=== PATIENT | female | born 1940 | race Caucasian/White ===

== ENCOUNTER 2017-09-15 03:39 | Emergency (ER) | payer OTHER ==
[2017-09-15] MEDS ORDERED: MEPERIDINE-PF 25 MG/ML SYG ONE (04:17)
[2017-09-15] MEDS ORDERED: METHYLPREDNISOLONE SOD SUCC 125MG/2ML VIAL ONE (04:17)
== END 2017-09-15 07:19 | disposition home or self-care (01) ==
LOC: EDH 03:39
DX: G43.901 Migraine, unspecified, not intractable, with status migrainosus (principal); E11.9 Type 2 diabetes mellitus without complications; E78.5 Hyperlipidemia, unspecified; I10 Essential (primary) hypertension
CPT/HCPCS: 96372 ×2; 99284; J2175; J2930

== ENCOUNTER → 2018-02-14 | Outpatient (CLI) | payer OTHER ==
[~2018-02-14] MED LIST: ISOVUE-370 50ML VIAL IV ONE
== END | disposition home or self-care (01) ==
LOC: RAH 12:34
PROVIDERS: ATTEND Family Medicine
DX: R41.82 Altered mental status, unspecified (principal); R47.81 Slurred speech
CPT/HCPCS: 70470; Q9967

== ENCOUNTER → 2018-09-07 | Outpatient (CLI) | payer OTHER | END | disposition home or self-care (01) | LOC: RAH 11:17 | PROVIDERS: ATTEND Family Medicine | DX: Z12.31 Encounter for screening mammogram for malignant neoplasm of breast (principal) | CPT/HCPCS: 77067 ==

== ENCOUNTER 2018-10-12 21:24 | Emergency (ER) | payer OTHER ==
[2018-10-12 22:08] LABS: BASOPHILS % (AUTO) 0.6 % (0.0-5.0); EOSINOPHILS % (AUTO) 0.2 % (0.0-8.0); HEMATOCRIT 38.1 % (36-48); LYMPHOCYTES % (AUTO) 9.4 % (21.0-51.0); MEAN CORPUSCULAR HEMOGLOBIN 31.4 pg (27.0-33.0); MEAN CORPUSCULAR HGB CONC 32.3 g/dL (32.0-36.0); MEAN CORPUSCULAR VOLUME 97.3 fL (79-99); MONOCYTES % (AUTO) 4.9 % (3.0-13.0); NEUTROPHILS % (AUTO) 84.9 % (40.0-77.0); PLATELET COUNT (AUTO) 198 K/uL (130-400); RED BLOOD CELL COUNT(AUTO) 3.92 MIL/uL (4.00-5.50); RED CELL DISTRIBUTION WIDTH 17.3 % (11.0-15.5); WHITE BLOOD COUNT (AUTO) 11.6 K/uL (4.8-10.8)
[2018-10-12 22:12] LABS: INR 1.04 (0.85-1.15); PARTIAL THROMBOPLASTIN TIME 24.2 SEC (26.3-35.5); PROTHROMBIN TIME 10.9 SEC (9.6-11.6)
[2018-10-12 22:16] LABS: POTASSIUM 3.6 mmol/L (3.5-5.1)
[2018-10-12 22:27] LABS: ALBUMIN 3.5 g/dL (3.5-5.0); BILIRUBIN,TOTAL 0.4 mg/dL (0.2-1.0); TOTAL PROTEIN, SERUM 6.2 g/dL (6.0-8.3)
[2018-10-12] MEDS ORDERED: SODIUM CHLORIDE 0.9% 1000ML 1,000 ML IV ONE (22:35)
[2018-10-12 23:52] LABS: BILIRUBIN,URINE Small (NEGATIVE); GLUCOSE, URINE (UA) Negative (NEGATIVE); KETONES,URINE 15 mg/dL (NEGATIVE); LEUKOCYTE ESTERASE ,URINE Moderate (NEGATIVE); NITRATE,URINE Positive (NEGATIVE); OCCULT BLOOD,URINE Large (NEGATIVE); PROTEIN,URINE POS 2+ (NEGATIVE)
[2018-10-12 23:56] LABS: APPEARANCE,URINE TURBID (CLEAR)
[2018-10-12 23:57] LABS: COLOR,URINE AMBER (YELLOW)
[2018-10-13 00:03] LABS: BACTERIA,URINE Moderate /HPF (None Seen); RBC,URINE >100 /HPF (0-1)
[2018-10-13] MEDS ORDERED: CEFTRIAXONE SODIUM 1 GM ONE (00:24)
[2018-10-13] MEDS ORDERED: SODIUM CHLORIDE 0.9% 50 ML IV ONE (00:24)
== END 2018-10-13 02:43 | disposition home or self-care (01) ==
LOC: EDH 21:24
DX: N39.0 Urinary tract infection, site not specified (principal); K59.00 Constipation, unspecified; E11.9 Type 2 diabetes mellitus without complications; E78.5 Hyperlipidemia, unspecified; I10 Essential (primary) hypertension; E07.9 Disorder of thyroid, unspecified
CPT/HCPCS: 36415; 74176; 76856; 80053; 81001; 82550; 84484; 85025; 85610; 85730; 86850; 86900; 86901; 87077; 87088; 87186; 93005; 96374; 99284; J0696; J7030

== ENCOUNTER 2019-12-02 13:23 | Emergency (ER) | payer OTHER ==
[~2019-12-02 13:23] MED LIST changes: +ATOR20TA65 PO; +DIPH50CA44 PO; +HYDR12.54 PO; +HYDR500C2 PO; -ISOVUE-370 50ML VIAL IV ONE; +LEVO100T12 PO; +METF-527 PO; +METO-391 PO; +NAPR-1023 PO; +ONDA4TAB10 PO; +SERT100T12 PO; +TRAZ-187 PO
[2019-12-02 13:38] LABS: BASOPHILS % (AUTO) 1.7 % (0.0-5.0); HEMATOCRIT 42.8 % (36-48); LYMPHOCYTES % (AUTO) 17.2 % (21.0-51.0); MEAN CORPUSCULAR HEMOGLOBIN 30.4 pg (27.0-33.0); MEAN CORPUSCULAR HGB CONC 32.2 g/dL (32.0-36.0); MEAN CORPUSCULAR VOLUME 94.3 fL (79-99); MONOCYTES % (AUTO) 5.7 % (3.0-13.0); NEUTROPHILS % (AUTO) 72.9 % (40.0-77.0); PLATELET COUNT (AUTO) 175 K/uL (130-400); RED BLOOD CELL COUNT(AUTO) 4.54 MIL/uL (4.00-5.50); RED CELL DISTRIBUTION WIDTH 15.2 % (11.0-15.5)
[2019-12-02 13:45] LABS: CREATININE 1.2 mg/dL (0.5-1.5)
[2019-12-02 13:50] LABS: ALBUMIN 3.6 g/dL (3.5-5.0); BILIRUBIN,TOTAL 0.3 mg/dL (0.2-1.0); TOTAL PROTEIN, SERUM 7.1 g/dL (6.0-8.3)
[2019-12-02] MEDS ORDERED: ASPIRIN 325 MG TABLET ONE (14:18)
== END 2019-12-02 16:57 | disposition home or self-care (01) ==
LOC: EDH 13:23
DX: R07.89 Other chest pain (principal); E11.9 Type 2 diabetes mellitus without complications; E78.5 Hyperlipidemia, unspecified; I10 Essential (primary) hypertension
CPT/HCPCS: 36415; 71046; 80053; 82550; 84484; 85025; 93005

== ENCOUNTER 2019-12-14 09:56 | Inpatient (IN) | payer OTHER ==
[~2019-12-14] VITALS: Ht 157.5 cm; Wt 55.4 kg
[2019-12-14 10:31] LABS: BASOPHILS % (AUTO) 0.6 % (0.0-5.0); EOSINOPHILS % (AUTO) 0.1 % (0.0-8.0); HEMATOCRIT 47.9 % (36-48); LYMPHOCYTES % (AUTO) 5.5 % (21.0-51.0); MEAN CORPUSCULAR HGB CONC 32.8 g/dL (32.0-36.0); MEAN CORPUSCULAR VOLUME 91.4 fL (79-99); MONOCYTES % (AUTO) 4.4 % (3.0-13.0); NEUTROPHILS % (AUTO) 88.8 % (40.0-77.0); PLATELET COUNT (AUTO) 243 K/uL (130-400); RED BLOOD CELL COUNT(AUTO) 5.24 MIL/uL (4.00-5.50); RED CELL DISTRIBUTION WIDTH 15.8 % (11.0-15.5); WHITE BLOOD COUNT (AUTO) 12.7 K/uL (4.8-10.8)
[2019-12-14 10:46] LABS: APPEARANCE,URINE Clear (CLEAR); BILIRUBIN,URINE Negative (NEGATIVE); COLOR,URINE Yellow (YELLOW); GLUCOSE, URINE (UA) 250 mg/dL (NEGATIVE); KETONES,URINE 15 mg/dL (NEGATIVE); LEUKOCYTE ESTERASE ,URINE Negative (NEGATIVE); NITRATE,URINE Negative (NEGATIVE); OCCULT BLOOD,URINE Negative (NEGATIVE); PH,URINE 6.5 (5.0-8.0); PROTEIN,URINE POS 2+ mg/dL (NEGATIVE)
[2019-12-14] MEDS ORDERED: CEFTRIAXONE SODIUM 1 GM ONE (10:52)
[2019-12-14 10:56] LABS: ALBUMIN 4.3 g/dL (3.5-5.0); BILIRUBIN,TOTAL 0.5 mg/dL (0.2-1.0); CREATININE 1.2 mg/dL (0.5-1.5); TOTAL PROTEIN, SERUM 8.2 g/dL (6.0-8.3)
[2019-12-14 11:08] LABS: RBC,URINE 0-1 /HPF (0-1)
[2019-12-14 11:09] LABS: BACTERIA,URINE Rare /HPF (None Seen); WBC,URINE 0-1 /HPF (0-1)
[2019-12-14 11:40] LABS: POTASSIUM 3.7 mmol/L (3.5-5.1)
[2019-12-14 12:13] LABS: AMPHET/METH SCREEN,URINE NEGATIVE (NEGATIVE); BARBITURATE SCREEN, URINE POSITIVE (NEGATIVE); BENZODIAZEPINES SCREEN,URINE NEGATIVE (NEGATIVE); CANNABINOID SCREEN,URINE NEGATIVE (NEGATIVE); COCAINE SCREEN,URINE NEGATIVE (NEGATIVE); OPIATE SCREEN,URINE NEGATIVE (NEGATIVE); PHENCYCLIDINE SCREEN,URINE NEGATIVE (NEGATIVE)
[2019-12-14] MEDS ORDERED: LORAZEPAM 2 MG/ML 1 ML VIAL ONE (12:35)
[2019-12-14] MEDS ORDERED: SODIUM CHLORIDE 0.9% 1000ML 1,000 ML IV SCH (13:15)
--- NOTE | 2019-12-14 14:12 | NUR ---
ARRIVAL TO FLOOR ROOM 225 PT IS AWAKE AND ALERT TO NAME. I ASKED HER AGE, SHE STATES "YOU WOULDN'T BELIEVE ME" AND STARTS LAUGHING. I ASK HER OTHER QUESTIONS AND SHE CONTINUES TO LAUGH. BREATHING PATTERN IS EVEN AND UNLABORED. NO VISIBLE SIGNS OF DISTRESS NOTED. LAYING UPRIGHT IN BED. SIDE RAILS UP X4 BLINDS OPEN. MOST OF ADMISSION QUESTIONAIRE DONE BY PREVIOUS HISTORY AND ADMISSION INFO
[2019-12-14 14:23] VITALS: BP 148/91
[2019-12-14] MEDS ORDERED: LEVOFLOXACIN 500 MG TABLET PO SCH (15:00)
[2019-12-14] MEDS ORDERED: BACL10TA PO (15:17)
[2019-12-14] MEDS ORDERED: MIRT15TA6 PO (15:17)
[2019-12-14] MEDS ORDERED: HYDR-3421 PO (15:17)
[2019-12-14] MEDS ORDERED: METOPROLOL ER PO (15:17)
[2019-12-14] MEDS ORDERED: BUTA-256 PO (15:17)
[2019-12-14] MEDS ORDERED: ZONI100C19 PO (15:17)
[2019-12-14] MEDS ORDERED: ISOS30TA6 PO (15:17)
[2019-12-14 16:13] VITALS: BP 153/95
--- NOTE | 2019-12-14 18:00 | NUR ---
STATUS NO COMPLAINTS THROUGHOUT THE AFTERNOON, CONTINUES WITH NS INFUSION ORDERED. SITTING UP IN BED. SIDE RAILS UP X4. CALL LIGHT WITHIN REACH.
[2019-12-14 19:33] VITALS: BP 187/110
[2019-12-14] MEDS ORDERED: CLONIDINE HCL 0.2 MG TABLET PO PRN (19:45)
[2019-12-14] MEDS: LISINOPRIL 40 MG TABLET PO SCH ×2 (20:00→20:31)
[2019-12-14 20:30] VITALS: BP 160/103
[2019-12-14] MEDS: HYDROXYZINE HCL 25 MG TABLET PO PRN (20:30)
[2019-12-14] MEDS: ATORVASTATIN CALCIUM 20 MG TABLET PO SCH ×2 (20:30→21:00)
[2019-12-14] MEDS: QUETIAPINE FUMARATE 25 MG TAB PO SCH ×2 (20:30→21:00)
[2019-12-14] MEDS: NITROGLYCERIN 1GM/1 INCH PACKET TD SCH ×2 (20:36→21:00)
[2019-12-14] MEDS ORDERED: HALOPERIDOL LACTATE 5 MG/ML VIAL ONE (23:41)
[2019-12-14] MEDS ORDERED: HALOPERIDOL LACTATE 5 MG/ML VIAL IM PRN (23:45)
[2019-12-14] MEDS: HALOPERIDOL LACTATE 5 MG/ML VIAL IM SCH (23:45)
[2019-12-14] MEDS ORDERED: LORAZEPAM 2 MG/ML 1 ML VIAL IVP PRN (23:45)
--- NOTE | 2019-12-15 01:46 | NUR ---
2300: HOURLY ROUNDS PERFORMED BY PRIMARY NURSE, GI SANTOS RN. PATIENT REMOVED IV. REFUSING IV PLACEMENT. PATIENT ATTEMPTING TO GET OUT OF BAD. HITTING NURSE AND PCTANNE. 2305: SITTER ORDER PLACED 2310: DRY CELL SEALER, BETSY, NOTIFIED OF SITTER REQUEST. DRY CELL SEALER STATED NO SITTERS AVAILABLE AT THIS TIME. 2315: PATIENT OUT OF BED AND PACING IN ROOM AND HALLWAY. PATIENT ESCORTED TO ROOM, REFUSING TO RETURN TO BED. 2320: ADAM AND MD BRUSH PAGED BY LIBRARY MANAGER. 2330: MD BRUSH RETURNED PAGE. NOTIFIED OF PATIENT CONDITION BY GI EMANUEL. ORDERS FOR 2MG HALDOL IM Q4 PRN FOR AGITATION AND ATIVAN 1MG IV Q4 PRN FOR AGITATION. TORB. ORDERS PLACED IN EMR. 2345: SECURITY AT BEDSIDE. HALDOL ADMINISTERED IM BY GI EMANUEL. PATIENT RETURNED TO BED WITH ASSISTANCE BY RN, PCT AND SECURITY. 0000: PATIENT REFUSING VITAL SIGNS CHECKS. 0030: PIV INSERTION ATTEMPTED. PATIENT REFUSED. PATIENT ATTEMPTING TO HIT AND KICK NURSING STAFF.
[2019-12-15] MEDS: NITROGLYCERIN 1GM/1 INCH PACKET TD SCH ×3 (04:39→20:10)
[2019-12-15] MEDS ORDERED: LEVOFLOXACIN 500 MG/D5W 100 ML 100 ML IV SCH (05:00)
--- NOTE | 2019-12-15 05:46 | NUR ---
0500: PATIENT AGITATED, TRYING TO GET OUT OF BED. NURSING STAFF AT BEDSIDE. REFUSING LAB DRAWS. PRIMARY NURSE, GI EMANUEL, COORDINATED LAB RESCHEDULING TIME WITH CAD ADMINISTRATOR.
[2019-12-15] MEDS: LEVOTHYROXINE 100 MCG TABLET PO SCH (06:20)
--- NOTE | 2019-12-15 07:15 | NUR ---
ASSESSMENT PT IS AWAKE AND ALERT, CONFUSED AND HOSTILE, ANSWERS TO HER NAME. CONSTANTLY SAYS "NO" TO ALL QUESTIONS WHEN ASKED. ATTEMPTS TO REMOVE BLINDS FROM WINDOW, REMOVING PAPERTOWELS FROM DISPENSER. NOTED STEADY GAIT. WHEN ASKED IF SHE WILL EAT BREAKFAST OR TAKE HER MEDS, SHE SAYS NO. CONTINUING TO MONITOR. REFUSING VITALS SIGNS CHECK AT THIS TIME.
[2019-12-15 07:32] VITALS: BP 126/94
--- NOTE | 2019-12-15 07:45 | NUR ---
VS CHECKED 1:1 SITTER AT BEDSIDE. MITTENS PLACED ON PATIENT. PATIENT ASSISTED TO CHAIR. 1:1 REMAINS AT BEDSIDE.
--- NOTE | 2019-12-15 08:30 | NUR ---
AM MEDS GIVEN CRUSHED WITH OATMEAL, TOLERATED OATMEAL WITH 1:1 SITTER ASSISTANCE
[2019-12-15] MEDS: HYDROXYUREA 500 MG CAP PO SCH (08:32)
[2019-12-15] MEDS: METOPROLOL SUCCINATE 50 MG TAB.SR.24H PO SCH (08:32)
[2019-12-15] MEDS: HYDROCHLOROTHIAZIDE 25 MG TABLET PO SCH (08:32)
[2019-12-15] MEDS: ISOSORBIDE MONO 30MG TAB SR PO SCH (08:33)
[2019-12-15] MEDS: HYDROXYZINE HCL 25 MG TABLET PO PRN (08:33)
[2019-12-15] MEDS: ZONISAMIDE 100 MG CAP PO SCH (08:33)
[2019-12-15] MEDS: PANTOPRAZOLE SODIUM 40 MG TABLET.DR PO SCH (08:34)
[2019-12-15] MEDS: LISINOPRIL 40 MG TABLET PO SCH (08:34)
--- NOTE | 2019-12-15 09:20 | NUR ---
REFUSED IV START
[2019-12-15 09:46] LABS: BASOPHILS % (AUTO) 0.6 % (0.0-5.0); EOSINOPHILS % (AUTO) 0.1 % (0.0-8.0); LYMPHOCYTES % (AUTO) 4.5 % (21.0-51.0); MEAN CORPUSCULAR HEMOGLOBIN 29.9 pg (27.0-33.0); MEAN CORPUSCULAR HGB CONC 32.5 g/dL (32.0-36.0); MEAN CORPUSCULAR VOLUME 91.9 fL (79-99); MONOCYTES % (AUTO) 5.8 % (3.0-13.0); NEUTROPHILS % (AUTO) 88.3 % (40.0-77.0); PLATELET COUNT (AUTO) 243 K/uL (130-400); RED BLOOD CELL COUNT(AUTO) 4.79 MIL/uL (4.00-5.50); RED CELL DISTRIBUTION WIDTH 15.8 % (11.0-15.5); WHITE BLOOD COUNT (AUTO) 11.6 K/uL (4.8-10.8)
[2019-12-15 10:02] LABS: ALBUMIN 3.9 g/dL (3.5-5.0); BILIRUBIN,TOTAL 0.4 mg/dL (0.2-1.0); CREATININE 1.4 mg/dL (0.5-1.5); TOTAL PROTEIN, SERUM 7.3 g/dL (6.0-8.3)
[2019-12-15] MEDS ORDERED: POTASSIUM CHLORIDE 10% ELIXIR 20 MEQ/15 ML UDCUP PO SCH (10:45)
[2019-12-15 11:46] VITALS: BP 119/56
--- NOTE | 2019-12-15 13:00 | NUR ---
DR BRUSH ROUNDED SAW PATIENT, ORDERS RECEIVED AND CARRIED OUT
[2019-12-15] MEDS ORDERED: QUETIAPINE FUMARATE 25 MG TAB PO SCH (13:31)
[2019-12-15] MEDS ORDERED: LEVOFLOXACIN 500 MG TABLET PO SCH (13:32)
--- NOTE | 2019-12-15 13:50 | NUR ---
STATUS PATIENT ASSISTED TO BED, PATIENT IS ASLEEP. BREATHING PATTERN IS EVEN AND UNLABORED. SIDE RAILS UP X4, BLINDS OPEN, SITTER AT BEDSIDE.
--- NOTE | 2019-12-15 14:25 | NUR ---
cm note Pt currently with confusion. call made to pt's spouse Chalo Alanis, states pt normally independent with ambulation, does have a provider for adls. 2-3hrs daily, also, has a walker and a w/c but does not use, spouse transports to md. states normally pt is alert to make her own decisions, but confused currently. spouse states dc plan is back to home at dc when pt stable, states pt has been at [facility] in the past , but prefers she go home at dc. Addendum: 12/15/19 at 1434 by ITALIA ACOSTA Amended: Links added.
--- NOTE | 2019-12-15 16:55 | NUR ---
STATUS PATIENT REMAINS ASLEEP. BREATHING PATTERN IS EVEN AND UNLABORED. NO VISIBLE SIGNS OF DISTRESS NOTED. SIDE RAILS UP X4, BLINDS OPEN. SITTER AT BEDSIDE.
[2019-12-15 20:00] VITALS: BP 143/57
[2019-12-15] MEDS: ATORVASTATIN CALCIUM 20 MG TABLET PO SCH (20:10)
[2019-12-15] MEDS: QUETIAPINE FUMARATE 25 MG TAB PO SCH (20:10)
[2019-12-15] MEDS: HALOPERIDOL LACTATE 5 MG/ML VIAL IM SCH (22:48)
[2019-12-15 23:50] VITALS: BP 151/95
[2019-12-16 03:33] VITALS: BP 161/106
[2019-12-16] MEDS: NITROGLYCERIN 1GM/1 INCH PACKET TD SCH ×3 (04:55→21:00)
[2019-12-16] MEDS: LEVOTHYROXINE 100 MCG TABLET PO SCH (06:06)
[2019-12-16 06:07] LABS: BASOPHILS % (AUTO) 1.1 % (0.0-5.0); EOSINOPHILS % (AUTO) 1.1 % (0.0-8.0); HEMATOCRIT 43.8 % (36-48); LYMPHOCYTES % (AUTO) 12.5 % (21.0-51.0); MEAN CORPUSCULAR HEMOGLOBIN 30.4 pg (27.0-33.0); MEAN CORPUSCULAR HGB CONC 33.1 g/dL (32.0-36.0); MEAN CORPUSCULAR VOLUME 91.8 fL (79-99); MONOCYTES % (AUTO) 7.3 % (3.0-13.0); NEUTROPHILS % (AUTO) 77.3 % (40.0-77.0); PLATELET COUNT (AUTO) 188 K/uL (130-400); RED BLOOD CELL COUNT(AUTO) 4.77 MIL/uL (4.00-5.50); RED CELL DISTRIBUTION WIDTH 15.9 % (11.0-15.5)
[2019-12-16 06:26] LABS: ALBUMIN 3.7 g/dL (3.5-5.0); BILIRUBIN,TOTAL 0.5 mg/dL (0.2-1.0); CREATININE 1.1 mg/dL (0.5-1.5); TOTAL PROTEIN, SERUM 6.9 g/dL (6.0-8.3)
[2019-12-16 08:00] VITALS: BP 171/91
--- NOTE | 2019-12-16 08:30 | NUR ---
AM ASSESSMENT PT WATCHING TV. ORIENTED TO SELF ONLY. CONFUSED PHRASES. NO SOB. NO DISTRESS NOTED. DENIES CHEST PAIN OR DISCOMFORT. NO TELEMETRY MONITORING @ THIS TIME. DENIES N/V AND//OR DIARRHEA. POOR APPETITE. OOB TO CHAIR W/ASSISTANCE. NO IV ACCESS, MD AWARE. 1:1 SITTER. CALL PRIYANK W/IN REACH.
--- NOTE | 2019-12-16 09:00 | NUR ---
AM MEDICATIONS 0900 PT REFUSING TO TAKEN MORNINGS MEDS. 0930 PT HAS AGREED TO TAKE HOME MEDICATIONS. PILLS CRUSHED IN APPLE SAUCE.
[2019-12-16] MEDS: LISINOPRIL 40 MG TABLET PO SCH (09:04)
[2019-12-16] MEDS: ISOSORBIDE MONO 30MG TAB SR PO SCH (09:04)
[2019-12-16] MEDS: HYDROXYUREA 500 MG CAP PO SCH (09:04)
[2019-12-16] MEDS: METOPROLOL SUCCINATE 50 MG TAB.SR.24H PO SCH (09:04)
[2019-12-16] MEDS: PANTOPRAZOLE SODIUM 40 MG TABLET.DR PO SCH (09:04)
[2019-12-16] MEDS: LEVOFLOXACIN 500 MG TABLET PO SCH (09:04)
[2019-12-16] MEDS: HYDROCHLOROTHIAZIDE 25 MG TABLET PO SCH (09:05)
[2019-12-16] MEDS: ZONISAMIDE 100 MG CAP PO SCH (09:05)
--- NOTE | 2019-12-16 09:55 | NUR ---
NEUROLOGY CONSULT DR ROMO NOTIFIED OF CONSULT.
--- NOTE | 2019-12-16 10:10 | NUR ---
NEUROLOGY CONSULT DR ROMO IN TO SEE PT. CONSULT INFO RELAYED, UPDATED ON PT'S STATUS. PLAN OF CARE REVIEWED.
--- NOTE | 2019-12-16 10:24 | NUR ---
STATUS CALL RECEIVED FROM PT'S GRANDDAUGHTER. FAMILY MEMBER SPOKE W/DR ROMO VIA TELEPHONE REGARDING PT'S CURRENT & HOME MEDICATIONS.
[2019-12-16 11:15] VITALS: BP 118/74
[2019-12-16] MEDS ORDERED: POTASSIUM CHLORIDE 10% ELIXIR 20 MEQ/15 ML UDCUP PO PRN (11:15)
[2019-12-16] MEDS ORDERED: LEVOFLOXACIN 500 MG TABLET PO SCH (13:00)
[2019-12-16] MEDS: POTASSIUM CHLORIDE 20 MEQ ERTAB PO PRN ×3 (14:54→21:27)
[2019-12-16 16:00] VITALS: BP 113/71
[2019-12-16 19:32] VITALS: BP 140/78
[2019-12-16] MEDS: ATORVASTATIN CALCIUM 20 MG TABLET PO SCH (20:30)
[2019-12-16] MEDS: QUETIAPINE FUMARATE 25 MG TAB PO SCH (20:30)
[2019-12-16] MEDS: TEMAZEPAM 15 MG CAPSULE PO SCH ×2 (20:30→21:00)
[2019-12-16] MEDS: HALOPERIDOL LACTATE 5 MG/ML VIAL IM SCH (21:22)
[2019-12-16 23:00] VITALS: BP 131/72
[2019-12-17 03:00] VITALS: BP 111/70
[2019-12-17] MEDS: LEVOTHYROXINE 100 MCG TABLET PO SCH (07:41)
[2019-12-17] MEDS: NITROGLYCERIN 1GM/1 INCH PACKET TD SCH ×3 (07:50→20:01)
[2019-12-17 08:00] VITALS: BP 112/67
--- NOTE | 2019-12-17 08:00 | NUR ---
PT AWAKE AND OUT OF BED REVIEW FALL RISK PT IS STILL KIND OF WEAK, ASSIT BACK TO BED, AND HAS STAFF MEMBER AT THE BEDSIDE FOR MONITOR CARE. PT STATED THAT SHE IS AWARE OF HER CARE AND HER SURROUNDING, CALL LIGHT IN REACH.
[2019-12-17] MEDS: METOPROLOL SUCCINATE 50 MG TAB.SR.24H PO SCH (08:23)
[2019-12-17] MEDS: PANTOPRAZOLE SODIUM 40 MG TABLET.DR PO SCH (08:24)
[2019-12-17] MEDS: LISINOPRIL 40 MG TABLET PO SCH (08:24)
[2019-12-17] MEDS: LEVOFLOXACIN 500 MG TABLET PO SCH (08:25)
[2019-12-17] MEDS: ISOSORBIDE MONO 30MG TAB SR PO SCH (08:25)
[2019-12-17] MEDS: HYDROCHLOROTHIAZIDE 25 MG TABLET PO SCH (08:26)
[2019-12-17] MEDS: ZONISAMIDE 100 MG CAP PO SCH (09:00)
[2019-12-17] MEDS: HYDROXYUREA 500 MG CAP PO SCH (09:00)
--- NOTE | 2019-12-17 09:10 | NUR ---
DR. ROMO . HERE AND SPOKE WITH PT REGARDING STUDIES . PT STATED , THAT SHE HAD SOME STUDIES DONE AT [facility] . . STATED TO REQUEST STUDIES FROM THERE .
--- NOTE | 2019-12-17 11:02 | NUR ---
1015 received telephone consent from , Chalo Alanis([phone]) because patient is confused at this time.I faxed IM Letter to [phone] and placed in chart under consent tab.
[2019-12-17 11:41] VITALS: BP 143/90
[2019-12-17 14:47] LABS: CREATININE 1.4 mg/dL (0.5-1.5); POTASSIUM 4.4 mmol/L (3.5-5.1)
[2019-12-17 15:50] VITALS: BP 110/65
[2019-12-17] MEDS ORDERED: PHARMACY COMMUNICATION MISC SCH (19:15)
[2019-12-17 19:45] VITALS: BP 133/77
[2019-12-17] MEDS: TEMAZEPAM 15 MG CAPSULE PO SCH (20:00)
[2019-12-17] MEDS: QUETIAPINE FUMARATE 25 MG TAB PO SCH (20:00)
[2019-12-17] MEDS: ATORVASTATIN CALCIUM 20 MG TABLET PO SCH (20:00)
[2019-12-17] MEDS: ACETAMINOPHEN 325 MG TAB PO PRN (20:02)
--- NOTE | 2019-12-17 20:05 | NUR ---
MEDS SHIFT ASSESSMENT DONE, PLEASE REFER TO CHART. PT CLAIMS OF HEADACHE. EXPLAINED THAT MD WILL BE CALLED TO VERIFY ORDER SINCE EXEDRIN IS NOT AVAILABLE IN THE PHARMACY. DUE MEDS GIVEN, TYLENOL PO GIVEN FOR HEADACHE AT THIS TIME. KEPT RESTED AND COMFORTABLE IN BED. WILL RE-ASSESS PT. SITTER KEEPING CLOSE WATCH AT THIS TIME. Addendum: 12/17/19 at 2148 by BROOKE PEDRAZA RN RN Amended: Links added.
--- NOTE | 2019-12-17 20:53 | NUR ---
TRIED TO CALL [facility] VIA OFFICE PHONE BUT NO ANSWERING SERVICE. CALLED ON HIS CELLPHONE AND REFEREED NEGRA N/A IN THE RX. NEW ORDER RECEIVED, PLEASE REFER TO CPOE.
[2019-12-17] MEDS ORDERED: BUTALB/ACETAMINOPHEN/CAFFEINE 1 EACH TABLET PO PRN (21:00)
[2019-12-17 23:11] VITALS: BP 116/65
--- NOTE | 2019-12-18 01:26 | NUR ---
H/A PT AWAKENS AND COMPLAINTS OF HEADACHE. MEDICATED WITH BUTAL/TYLENOL/CAFFEINE TAB PO, TOLERATED WELL. ENCOURAGED TO REST AND SLEEP. ENCOURAGED TO GO BACK TO SLEEP. WILL RE-ASSESS PT.
[2019-12-18 03:13] VITALS: BP 109/64
[2019-12-18] MEDS: NITROGLYCERIN 1GM/1 INCH PACKET TD SCH (05:17)
[2019-12-18] MEDS: LEVOTHYROXINE 100 MCG TABLET PO SCH (05:17)
--- NOTE | 2019-12-18 05:17 | NUR ---
MEDS AWAKENED PT FOR DUE MEDS, TOLERATED WELL. NO NOTED CONFUSION AT THIS TIME. ENCOURAGED TO GO BACK TO SLEEP. FOR MORE CARE.
[2019-12-18] MEDS ORDERED: NITROGLYCERIN 1GM/1 INCH PACKET TD SCH (06:30)
[2019-12-18 07:09] VITALS: BP 108/72
[2019-12-18] MEDS ORDERED: METFORMIN HCL 500 MG TABLET PO SCH (08:00)
[2019-12-18] MEDS: ZONISAMIDE 100 MG CAP PO SCH (10:08)
[2019-12-18] MEDS: HYDROXYUREA 500 MG CAP PO SCH (10:09)
[2019-12-18] MEDS: PANTOPRAZOLE SODIUM 40 MG TABLET.DR PO SCH ×2 (10:09→10:22)
[2019-12-18] MEDS: METOPROLOL SUCCINATE 50 MG TAB.SR.24H PO SCH ×2 (10:10→10:14)
[2019-12-18] MEDS: ISOSORBIDE MONO 30MG TAB SR PO SCH (10:11)
[2019-12-18] MEDS: LEVOFLOXACIN 500 MG TABLET PO SCH (10:21)
[2019-12-18] MEDS: HYDROCHLOROTHIAZIDE 25 MG TABLET PO SCH (10:34)
[2019-12-18] MEDS: LISINOPRIL 40 MG TABLET PO SCH (10:35)
[2019-12-18 10:47] VITALS: BP 125/76
[2019-12-18] MEDS: ACETAMINOPHEN 325 MG TAB PO PRN (15:03)
--- NOTE | 2019-12-18 15:30 | NUR ---
DISCHARGED NOW USING TEACH BACK. INSTRUCTIONS GIVEN AND VERBALIZES UNDERSTANDING. WENT OVER ALL MEDS AGAIN AND THE ONES SHE STATES NO LONGER TAKES. WILL FOLLOW UP WITH APPT. AND TAKE MEDS INST. WHEELED DOWN TO PRIVATE CAR. ALL PERSONAL BELONGINGS WITH HER.
--- NOTE | 2019-12-18 15:45 | NUR ---
DISCHARGED NOW USING TEACH BACK, INST. GIVEN WITH RX AND APPT.TO FOLLOW UP PCP, VERY CONVERSIVE.NO C/O OF ANY KIND . UNDERSTANDS ALL HER MEDS, DISCUSSED NEW ONES. HOME MEDS IN PLASTIC BAG AND ACKNOWLEDGE THEM SHE WAS THINKING THEY HAD BEEN LOST OR MISPLACED WHEELED DOWN STAIRS WHERE SPOUSE WAS WAITING
--- NOTE | 2019-12-18 16:25 | NUR ---
DR. LERNER IN TO SEE PT. OK TO DC FROM HIS STANDPOINT, LEFT X.
== END 2019-12-18 15:55 | disposition home or self-care (01) | DRG 72 ==
LOC: EDH 09:56 → OBSVTOIN 12:51 → EDHIP 12:51 → 2DH 14:05 → 3CH 12-16 23:23
PROVIDERS: ADMIT Family Medicine; ATTEND Family Medicine
DX: G93.40 Encephalopathy, unspecified (principal); F03.90 Unspecified dementia, unspecified severity, without behavioral disturbance, psychotic disturbance, mood disturbance, and anxiety; E11.9 Type 2 diabetes mellitus without complications; I10 Essential (primary) hypertension; E78.5 Hyperlipidemia, unspecified; F41.1 Generalized anxiety disorder; Z90.710 Acquired absence of both cervix and uterus; E03.9 Hypothyroidism, unspecified; Z91.14 Patient's other noncompliance with medication regimen; R19.7 Diarrhea, unspecified; Z20.828 Contact with and (suspected) exposure to other viral communicable diseases; R41.0 Disorientation, unspecified
CPT/HCPCS: 36415; 70450; 71045; 74176; 80048; 80053; 80305; 81001; 82140; 82270; 82550; 82948; 83605; 83630; 84484; 85025; 87040; 87046; 87088; 87324; 87633; 87635; 93005; G0378; J0696; J1630; J2060; J7030

== ENCOUNTER → 2020-01-01 | Outpatient (CLI) | payer OTHER ==
[~2020-01-01] MED LIST changes: +BACL10TA PO; -DIPH50CA44 PO; +HYDR-3421 PO; +ISOS30TA6 PO; -METO-391 PO; +METOPROLOL ER PO; -NAPR-1023 PO; -ONDA4TAB10 PO; -SERT100T12 PO; -TRAZ-187 PO; +ZONI100C19 PO
== END | disposition home or self-care (01) ==
LOC: OIH 09:09
PROVIDERS: ATTEND Family Medicine
DX: M85.88 Other specified disorders of bone density and structure, other site (principal)
CPT/HCPCS: 73060

== ENCOUNTER 2021-04-09 18:36 | Observation (INO) | payer OTHER ==
[~2021-04-09] VITALS: Ht 152.4 cm; Wt 51.3 kg
[~2021-04-09 18:36] MED LIST changes: -ISOS30TA6 PO; +ISOS30TA92 PO
[2021-04-09 18:38] VITALS: BP 167/100
[2021-04-09 19:12] LABS: BASOPHILS % (AUTO) 1.2 % (0.0-5.0); EOSINOPHILS % (AUTO) 1.5 % (0.0-8.0); LYMPHOCYTES % (AUTO) 16.7 % (21.0-51.0); MEAN CORPUSCULAR HEMOGLOBIN 35.3 pg (27.0-33.0); MEAN CORPUSCULAR HGB CONC 33.7 g/dL (32.0-36.0); MEAN CORPUSCULAR VOLUME 104.9 fL (79-99); MONOCYTES % (AUTO) 7.7 % (3.0-13.0); NEUTROPHILS % (AUTO) 72.5 % (40.0-77.0); PLATELET COUNT (AUTO) 138 K/uL (130-400); RED BLOOD CELL COUNT(AUTO) 3.91 MIL/uL (4.00-5.50); RED CELL DISTRIBUTION WIDTH 14.7 % (11.0-15.5); WHITE BLOOD COUNT (AUTO) 6.8 K/uL (4.8-10.8)
[2021-04-09 19:24] LABS: POTASSIUM 3.4 mmol/L (3.5-5.1)
[2021-04-09 19:29] LABS: ALBUMIN 3.8 g/dL (3.5-5.0); BILIRUBIN,TOTAL 0.4 mg/dL (0.2-1.0); TOTAL PROTEIN, SERUM 7.1 g/dL (6.0-8.3)
[2021-04-09] MEDS ORDERED: NITROGLYCERIN 0.4 MG SL TAB SL PRN ×2 (19:30→22:00)
[2021-04-09] MEDS ORDERED: ASPIRIN 81MG CHEW TAB PO ONE (19:30)
[2021-04-09 19:35] LABS: B-TYPE NATRIURETIC PEPTIDE 150 pg/mL (0-100); INR 1.03 (0.85-1.15); PROTHROMBIN TIME 11.2 SEC (9.6-11.6)
[2021-04-09 19:36] LABS: PARTIAL THROMBOPLASTIN TIME 28.7 SEC (26.3-35.5)
[2021-04-09 20:13] VITALS: BP 146/92
[2021-04-09] MEDS ORDERED: NITROGLYCERIN 1GM OINT 1 INCH/1GM TD ONE (21:00)
[2021-04-09] MEDS ORDERED: LACTULOSE 20 GM/30 ML UDCUP PO PRN (22:00)
[2021-04-09] MEDS ORDERED: ZOLPIDEM TARTRATE 5 MG TAB PO PRN (22:00)
[2021-04-09] MEDS ORDERED: ONDANSETRON 4MG INJ IV PRN (22:00)
[2021-04-09] MEDS ORDERED: MAG/ALUM/SIMETH 30 ML UDCUP PO PRN (22:00)
[2021-04-09] MEDS ORDERED: MORPHINE 2 MG SYG IV PRN (22:00)
[2021-04-09] MEDS ORDERED: GUAIFENESIN-DM 200/20 MG 10 ML PO PRN (22:00)
[2021-04-09] MEDS ORDERED: ACETAMINOPHEN 325 MG TAB PO PRN ×2 (22:00)
[2021-04-09] MEDS ORDERED: ATORVASTATIN 20 MG TABLET PO SCH (22:30)
[2021-04-09] MEDS ORDERED: LABETALOL 20MG SYG IV PRN (22:30)
[2021-04-09] MEDS ORDERED: POTASSIUM CHLORIDE 10% ELIXIR 20 MEQ/15 ML UDCUP PO PRN (22:30)
[2021-04-09] MEDS ORDERED: KCL 20 MEQ ERTAB PO PRN (22:30)
[2021-04-09] MEDS ORDERED: POTASSIUM CHLORIDE 10MEQ/100ML 100 ML IV PRN (22:30)
[2021-04-09] MEDS ORDERED: DEXTROSE 50%-WATER 50 ML DISP.SYRIN IV PRN (22:30)
[2021-04-09] MEDS ORDERED: GLUCAGON 1MG KIT 1 MG ML IM PRN (22:30)
[2021-04-10 00:42] VITALS: BP 126/74
[2021-04-10 01:05] VITALS: BP 131/72
[2021-04-10 03:03] LABS: HEMATOCRIT 36.6 % (36-48); MEAN CORPUSCULAR HEMOGLOBIN 35.1 pg (27.0-33.0); MEAN CORPUSCULAR HGB CONC 33.6 g/dL (32.0-36.0); MEAN CORPUSCULAR VOLUME 104.6 fL (79-99); PLATELET COUNT (AUTO) 113 K/uL (130-400); RED CELL DISTRIBUTION WIDTH 14.6 % (11.0-15.5); WHITE BLOOD COUNT (AUTO) 5.1 K/uL (4.8-10.8)
[2021-04-10 03:13] LABS: CARBON DIOXIDE 26 mmol/L (21-32); CHLORIDE 108 mmol/L (101-111); CREATININE 0.9 mg/dL (0.5-1.5); GLOMERULAR FILTR. RATE CALC 64 mL/min (>60); GLUCOSE,RANDOM 130 mg/dL (70-105); POTASSIUM 3.6 mmol/L (3.5-5.1); SODIUM SERUM 143 mmol/L (136-145); UREA NITROGEN, BLOOD 17 mg/dL (7-18)
[2021-04-10 03:27] LABS: ALANINE AMINOTRANSFERASE 18 U/L (12-78); ALBUMIN 3.2 g/dL (3.5-5.0); ASPARTATE AMINOTRANSFERASE 15 U/L (10-37); BILIRUBIN,TOTAL 0.4 mg/dL (0.2-1.0); THYROID STIMULATING HORMONE 0.03 uIU/mL (0.36-3.74); TOTAL PROTEIN, SERUM 6.1 g/dL (6.0-8.3)
[2021-04-10 03:43] LABS: LIPASE < 50 U/L (114-286)
[2021-04-10 03:53] LABS: BASOPHILS % (MANUAL) 1 % (0-2); EOSINOPHILS % (MANUAL) 1 % (1-6); LYMPHOCYTES % (MANUAL) 21 % (22-44); MONOCYTES % (MANUAL) 6 % (2-9); SEGMENTED NEUTROPHILS % 71 % (40-70)
[2021-04-10 03:54] LABS: MAN.DIFF COMMENT-IMPRESSION MANUAL DIFFERENTIAL
[2021-04-10 03:55] LABS: PLATELET MORPHOLOGY COMMENT SLIGHTLY DECREASED
[2021-04-10 04:00] VITALS: BP 123/83
[2021-04-10] MEDS ORDERED: LEVOTHYROXINE 100 MCG TABLET PO SCH (06:30)
[2021-04-10 07:10] VITALS: BP 139/90
[2021-04-10] MEDS ORDERED: INSULIN HUMULIN R 100 UNIT/ML 3ML SQ SCH (07:30)
[2021-04-10 08:40] LABS: APPEARANCE,URINE Clear (CLEAR); BILIRUBIN,URINE Negative (NEGATIVE); COLOR,URINE Yellow (YELLOW); GLUCOSE, URINE (UA) Negative (NEGATIVE); KETONES,URINE Negative (NEGATIVE); LEUKOCYTE ESTERASE ,URINE Moderate (NEGATIVE); NITRATE,URINE Negative (NEGATIVE); OCCULT BLOOD,URINE Negative (NEGATIVE); PROTEIN,URINE POS 1+ mg/dL (NEGATIVE)
[2021-04-10 09:00] LABS: BACTERIA,URINE Rare /HPF (None Seen); MUCUS,URINE Few LPF (None Seen); RBC,URINE None Seen /HPF (0-1); WBC,URINE 51-100 /HPF (0-1)
[2021-04-10] MEDS: ASPIRIN 81MG CHEW TAB PO SCH ×2 (09:00→09:04)
[2021-04-10] MEDS ORDERED: PANTOPRAZOLE 40 MG/VIAL IVP SCH (09:00)
[2021-04-10] MEDS: ENOXAPARIN SODIUM 30 MG/0.3 ML SQ SCH ×2 (09:00→09:03)
== END 2021-04-10 12:37 | disposition home or self-care (01) ==
LOC: EDH 18:36 → EDHIP 21:50 → 3AH 04-10 00:10
PROVIDERS: ADMIT Internal Medicine; ATTEND Internal Medicine
DX: I20.0 Unstable angina (principal); R07.89 Other chest pain; I10 Essential (primary) hypertension; E11.9 Type 2 diabetes mellitus without complications; E03.9 Hypothyroidism, unspecified; E78.5 Hyperlipidemia, unspecified; F03.90 Unspecified dementia, unspecified severity, without behavioral disturbance, psychotic disturbance, mood disturbance, and anxiety; G89.29 Other chronic pain; Z79.82 Long term (current) use of aspirin
CPT/HCPCS: 36415 ×2; 71045; 80053 ×2; 81001; 82550; 82948; 83690; 83880; 84443; 84484 ×3; 85025 ×2; 85378; 85610; 85730; 87088; 93005 ×3; 93306; 93356; 96374; 96375; 99285; C9113; G0378 ×14; J1650; J2405

== ENCOUNTER → 2022-09-15 | Outpatient (CLI) | payer OTHER ==
[~2022-09-15] MED LIST changes: -ZONI100C19 PO; +ZONI100C87 PO
== END | disposition home or self-care (01) ==
LOC: RAH 15:27
PROVIDERS: ATTEND Family Medicine
DX: Z12.31 Encounter for screening mammogram for malignant neoplasm of breast (principal)
CPT/HCPCS: 77067

== ENCOUNTER 2023-04-11 22:25 | Emergency (ER) | payer OTHER ==
[~2023-04-11] VITALS: Ht 152.4 cm; Wt 50.8 kg
[2023-04-11 22:51] LABS: BASOPHILS # (AUTO) 0.07 K/uL (0.00-0.20); BASOPHILS % (AUTO) 1.3 % (0.0-5.0); EOSINOPHILS # (AUTO) 0.05 K/uL (0.00-0.70); EOSINOPHILS % (AUTO) 0.9 % (0.0-8.0); HEMATOCRIT 40.1 % (36-48); IMMATURE GRANULOCYTE ABSOLUTE 0.04 K/uL (0-1); LYMPHOCYTES # (AUTO) 0.4 K/uL (1.0-4.8); LYMPHOCYTES % (AUTO) 6.3 % (21.0-51.0); MEAN CORPUSCULAR HEMOGLOBIN 37.4 pg (27.0-33.0); MEAN CORPUSCULAR HGB CONC 34.4 g/dL (32.0-36.0); MEAN CORPUSCULAR VOLUME 108.7 fL (79-99); MONOCYTES # (AUTO) 0.4 K/uL (0.1-1.0); MONOCYTES % (AUTO) 6.5 % (3.0-13.0); NEUTROPHILS # (AUTO) 4.7 K/uL (1.8-7.7); NEUTROPHILS % (AUTO) 84.3 % (40.0-77.0); PLATELET COUNT (AUTO) 120 K/uL (130-400); RED BLOOD CELL COUNT(AUTO) 3.69 MIL/uL (4.00-5.50); RED CELL DISTRIBUTION WIDTH 13.6 % (11.0-15.5); WHITE BLOOD COUNT (AUTO) 5.5 K/uL (4.8-10.8)
[2023-04-11 23:08] LABS: ALBUMIN 3.5 g/dL (3.5-5.0); BILIRUBIN,TOTAL 0.3 mg/dL (0.2-1.0); POTASSIUM 3.6 mmol/L (3.5-5.1)
[2023-04-12 01:02] VITALS: BP 139/64; PULSE 61; RESP 18; O2SAT 98
[2023-04-12] MEDS ORDERED: IBUP-1493 PO (01:05)
== END 2023-04-12 01:19 | disposition home or self-care (01) ==
LOC: EDH 22:25
DX: R07.89 Other chest pain (principal); E11.9 Type 2 diabetes mellitus without complications; E78.00 Pure hypercholesterolemia, unspecified; E03.9 Hypothyroidism, unspecified; I10 Essential (primary) hypertension; Z79.899 Other long term (current) drug therapy
CPT/HCPCS: 36415; 71045; 80053; 84484; 85025; 93005